=== PATIENT | female | born 1995 | race Caucasian/White ===

== ENCOUNTER 2016-11-05 09:04 | Emergency (ER) | payer MEDICAID, OTHER ==
[~2016-11-05] VITALS: Ht 127 cm; Wt 60.0 kg
[~2016-11-05 09:04] MED LIST: AMOX500C2 PO; ONDA4TAB35 PO; PRED20TA PO; RANI150T9 PO
[2016-11-05 09:07] VITALS: Ht 127 cm; Wt 60.0 kg
[2016-11-05] MEDS ORDERED: FAMOTIDINE 20 MG TAB PO ONE (10:00)
[2016-11-05] MEDS ORDERED: LORATADINE 10 MG TAB PO ONE (10:00)
[2016-11-05] MEDS ORDERED: BEN25 PO (10:46)
[2016-11-05] MEDS ORDERED: CETI10CA PO (10:46)
[2016-11-05] MEDS ORDERED: EPIN0.3P4 INJ (10:47)
[2016-11-05 10:59] VITALS: TEMP 98.2
--- NOTE | 2016-11-17 22:36 | ERA ---
ER Documentation Chief Complaint Date/Time DATE: 11/17/16 TIME: 22:34 Chief Complaint RASH BOTH HAND AND EYE LID SWELLING HPI Patient is presenting 12 hours post rash on the dorsal hands and wrist and read by swelling. Patient has not taken any medications to relieve the symptoms. Patient does describe similar symptoms in the past but is unable to identify a specific trigger except a possible insect bite. Patient does state that she is allergic to bees. Denies fever, cough, dyspnea, dysphagia, drooling or change in voice. Medical history and nursing notes have been reviewed and are consistent with patients history. Vaccination status is up-to-date. ROS All systems reviewed and are negative except as per history of present illness. Medications Home Meds Active Scripts Epinephrine (Epipen 2-[place]) 0.3 Mg/0.3 Ml Pen.injctr, 1 EA INJ ONCE Y for ALLERGIC REACTION, #1 EA Prov:HOMER CAMARGO PA-C 11/05/16 Cetirizine Hcl* (Zyrtec*) 10 Mg Capsule, 10 MG PO DAILY, #10 TAB.CHEW Prov:HOMER CAMARGO PA-C 11/05/16 Diphenhydramine Hcl* (Benadryl*) 25 Mg Cap, 25 MG PO Q6, #30 CAP Prov:HOMER CAMARGO PA-C 11/05/16 Amoxicillin* (Amoxicillin*) 500 Mg Cap, 500 MG PO TID for 10 Days, #20 CAP Prov:Shital Pearce PA-C 02/13/16 Prednisone* (Prednisone*) 20 Mg Tab, 40 MG PO DAILY for 3 Days, #3 TAB Prov:Shital Pearce PA-C 02/13/16 Ondansetron Hcl* (Zofran* ODT) 4 mg -ODT Tab.disper, 4 MG PO Q6 Y for NAUSEA AND /OR VOMITING, #10 TAB Prov:ROBB BERNAL 10/30/14 Ranitidine Hcl* (Zantac*) 150 Mg Tablet, 150 MG PO BID Y for GERD, #30 TAB Prov:ROBB BERNAL 10/30/14 Allergies Allergies: Coded Allergies: No Known Allergies (Verified Allergy, Unknown, 11/05/16) PMhx/Soc Medical and Surgical Hx: pt denies Medical Hx, pt denies Surgical Hx History of Surgery: No Anesthesia Reaction: No Hx Neurological Disorder: No Hx Respiratory Disorders: No Hx Cardiac Disorders: No Hx Psychiatric Problems: No Hx Miscellaneous Medical Probl: No Hx Alcohol Use: No Hx Substance Use: No Hx Tobacco Use: No Smoking Status: Never smoker Physical Exam Physical Exam Const: Healthy-appearing. Well-nourished. Well-developed. No acute distress. Skin: Mild swelling of the wrists bilaterally and upper eyelid. No streaking identified. No puncture wound identified. No petechiae, ulcer, induration, or jaundice. Good turgor. Pulm: Good air movement. No rhonchi, wheezes or crackles in all lobes bilaterally auscultated. No abnormal tympani or dullness on percussion in all lobes bilaterally. Equal and appropriate lung expansion. No abnormal tactile fremitus palpated. No retractions, stridor, tripoding or drooling. Oral: No oral edema or lesions visualized. Mucous membranes moist and pink. Neck: No cervical lymphadenopathy, masses or goiter palpated. Trachea midline. Supple ~ No meningismus. Head: Normocephalic, Atraumatic. Eyes: Non-injected; No scleral erythema, discharge or foreign body. EOMI and JONAS bilaterally. Ears: Normal External Ears, EACs clear, TM normal bilaterally without erythema. Nose: Normal nose without discharge, septal deviation, or sinus tenderness. Cardio: Regular rate and rhythm; No murmurs, gallops or rubs auscultated. No JVD grossly observed. Radial and posterior tibial pulses 2+ bilaterally. No cyanosis. Capillary refill less than 2 seconds. Abd: Soft, non tender, non distended. No guarding, masses. Normal bowel sounds. No McBurney's point tenderness. MS: Normal motor strength, normal tone with gross examination. Back: No midline, flank or CVA tenderness. Ext: No cyanosis, edema or palpable cord. Normal movement of all extremities grossly observed. Neur: Awake, alert and oriented x3. Neurovascularly intact bilaterally. Psych: Normal Mood and Affect. Results 24 hrs Current Medications Medications (Trade) Dose Ordered Sig/[place] Route PRN Reason Start Time Stop Time Status Last Admin Dose Admin Loratadine (Claritin) 10 mg ONCE ONCE PO 11/05/16 10:00 11/05/16 10:01 DC 11/05/16 10:08 Famotidine (Pepcid) 20 mg ONCE ONCE PO 11/05/16 10:00 11/05/16 10:01 DC 11/05/16 09:57 Procedures/MDM Patient is being worked up and evaluated for acute rash as described in the history and physical exam. Patient was given loratadine and famotidine in the ED. Reevaluation revealed improvement of symptoms. The most likely diagnosis is acute allergic reaction/urticaria due to possible insect bite versus unknown etiology. The treatment plan will thus include outpatient Zyrtec and Benadryl as well as EpiPen due to history of allergic reactions and allergy to bees. At this time, I have little suspicion for vasculitis, erythema multiforme, contact dermatitis, pityriasis rosea, or erythema migrans / lyme disease. I no longer have suspicion for endangerment of the airway. I have spoke with the patient regarding their condition and future management. They have verbally responded that they understand their status and treatment plan. The patients vitals are stable, and their current condition is appropriate for discharge. The patient will be given discharge instructions with return precautions. Departure Diagnosis: Primary Impression: Acute urticaria Condition: Stable Patient Instructions: Allergic Reaction, Insect (General) Additional Instructions: Follow up with your PCP within the next 1-3 days for a more thorough evaluation and a possible referral to a specialist. Return the the emergency department immediately if symptoms worsen or change. If you have any questions regarding medications, ask your pharmacist or us before you leave. If any adverse reactions occur while taking your medications, discontinue the treatment and return to the emergency department immediately. Take your medications as directed, and complete the entire course of treatment. HOMER CAMARGO PA-C Nov 17, 2016 22:35
== END 2016-11-05 11:00 | disposition home or self-care (01) ==
LOC: FTE 09:04
DX: L50.9 Urticaria, unspecified (principal)
CPT/HCPCS: Z7502; Z7610; 99283

== ENCOUNTER 2017-10-05 18:55 | Emergency (ER) | END 2017-10-05 23:26 | disposition left against medical advice (07) ==